=== PATIENT | male | born 1960 | race Caucasian/White ===

== ENCOUNTER → 2017-12-03 | Day surgery (SDC) | payer OTHER ==
[2017-11-03 09:46] LABS: BASOPHILS % 0.1 % (0.0-1.0); EOSINOPHILS # (AUTO) 0.3 (0.0-0.4); EOSINOPHILS % 2.2 % (0.0-6.0); HEMATOCRIT 44.4 % (38.2-49.6); HEMOGLOBIN 15.5 g/dL (14.0-18.0); LYMPHOCYTES # (AUTO) 2.4 (1.0-3.2); MEAN CORPUSCULAR HEMOGLOBIN 33.6 pg (28-32); MEAN CORPUSCULAR HGB CONC 34.9 g/dL (31-35); MEAN CORPUSCULAR VOLUME 96.3 fL (81-99); MONOCYTES # (AUTO) 0.9 (0.2-0.8); MONOCYTES % 7.9 % (4.4-11.3); NEUTROPHILS # (AUTO) 7.9 (2.1-6.9); NEUTROPHILS % 68.4 % (38.7-80.0); PLATELET COUNT 182 x10e3/uL (140-360); RED BLOOD COUNT 4.61 x10e6/uL (4.3-5.7); RED CELL DISTRIBUTION WIDTH 12.1 % (11.7-14.4)
--- NOTE | 2017-11-03 10:36 | Diagnostic Imaging Report ---
PROCEDURE: X-RAY CHEST, TWO VIEWS COMPARISON: None. INDICATIONS: PRE-OPERATIVE CHEST X-RAY FOR KNEE SCOPE FINDINGS: LUNGS: No consolidations or edema. PLEURA: No effusions or pneumothorax. HEART \T\ MEDIASTINUM: The heart is within normal size-limits. BONES \T\ SOFT TISSUES: No acute findings. There are degenerative changes of the spine. CONCLUSION: No acute thoracic abnormality. Justino Manning D.O. Dictated by: Justino Manning D.O. on 11/03/2017 at 10:35 Electronically approved by: Justino Manning D.O. on 11/03/2017 at 10:35
[~2017-12-03] MED LIST: ACEBUTOLOL HCL400 MG PO; ACETAMINOPHEN 1000 MG/100 ML IV ONE; AMLODIPINE BESY10 MG PO; ASPIR 8181 MG PO; BUPIVACAINE 0.5%/EPI 30 ML SDV INJ ONE; CEFAZOLIN SOD 2 GM/D5W 50ML 50 ML IV ONE; CLONIDINE HCL0.1 MG PO; DESFLURANE 240 ML BTL INH ONE; DEXAMETHASONE SOD PHOS INJ 4 MG/ML VIAL ONE; FENTANYL CITRATE/PF 100MCG/2 ML INJ ONE; FOLIC ACID1 MG PO; ISOSORBIDE MONO20 MG PO; KETAMINE HCL INJ 50 MG/ML 10 ML VIAL ONE; KETOROLAC TROMETHAMINE 30 MG/ML VIAL ONE; LIDOCAINE HCL 2% LOCAL INJ 5 ML SDV VIAL INJ ONE; LISINOPRIL10 MG PO; LOSARTAN POTAS100 MG PO; LOSARTAN POTASS50 MG PO; METOCLOPRAMIDE10 MG PO; METOPROLOL SUC100 MG; MIDAZOLAM HCL 2 MG/2 ML VIAL ONE; NORCO 10-325 T1 EACH PO; ONDANSETRON HCL INJ 2 MG/ML VIAL ONE; PLAVIX75 MG PO; PRAVASTATIN SOD40 MG PO; PROPOFOL IV EMULSION 10 MG/ML 20 ML VIAL ONE; PROTONIX40 MG PO; SUBOXONE 2 MG-1 EAC2 SL; SULINDAC200 MG PO
--- OUTSIDE RECORDS SUMMARY | 2017-12-03 09:09 | XMS REPORT ---
[facility] Address Unknown Phone Unavailable Care Team Providers Care Ware Tester Name Role Phone DURAN CHAN Unavailable Unavailable Problems This patient has no known problems. Allergies, Adverse Reactions, Alerts This patient has no known allergies or adverse reactions. Medications This patient has no known medications. Results Test Description Test Time Test Comments Text Results Atomic Results Result Comments CHEST 2 VIEWS [place] [address] Patient Name: FLAVIA CORMIER MR #: [id number] : 1960 Age/Sex: 57/M Req #: [id number] Adm Physician: Ordered by: GENO XIE MD Report #: [id number] Location: OR Room/Bed: Procedure: 0312- [id number] DX/CHEST 2 VIEWS Exam Date: 11/03/17 Exam Time : 0955 REPORT STATUS: Signed PROCEDURE: X-RAY CHEST, TWO VIEWS COMPARISON: None. INDICATIONS: PRE-OPERATIVE CHEST X-RAY FOR KNEE SCOPE FINDINGS: LUNGS: No consolidations or edema. PLEURA: No effusions or pneumothorax. HEART T MEDIASTINUM: The heart is within normal size-limits. BONES T SOFT TISSUES: No acute findings. There are degenerative changes of the spine. CONCLUSION: No acute thoracic abnormality. Kenneth Manning D.O. Dictated by: Kenneth Manning D.O. on 11/03/2017 at 10:35 Electronically approved by: Kenneth Manning D.O. on 11/03/2017 at 10:35 Dictated By: KENNETH MANNING DO 1036 Transcribed By: HOLLEY on 11/03/17 1036 COPY TO: GENO XIE MD
--- OUTSIDE RECORDS SUMMARY | 2017-12-03 09:10 | XMS REPORT ---
Author Organization Unknown Address [address] [place] [address] Phone [phone] Care Team Providers Care Turret Lathe Tender Name Role Phone Aravind Howard Jr Unavailable Unavailable Allergies Code Code System Name Reaction Severity Status Onset 5470 RxNorm Hydralazine Dizziness Moderate Active 07/14/2017 Medications Name Status Start Date Stop Date acebutolol 400 mg capsule Completed 01/15/2017 acetaminophen 300 mg-codeine 30 mg tablet Completed 12/24/2016 amlodipine 10 mg tablet Active Not available amoxicillin 875 mg tablet Completed 06/02/2017 aspirin 81 mg tablet,delayed release Take 1 tablet every day by oral route. Active Not available celecoxib 200 mg capsule Completed 12/24/2016 clonidine HCl 0.1 mg tablet Active Not available fluocinonide 0.05 % topical cream Completed 06/02/2017 Harvoni 90 mg-400 mg tablet Completed 12/24/2016 Havrix (PF) 1,440 Nikki unit/mL intramuscular suspension Completed 2016 hydralazine 25 mg tablet Completed 08/01/2017 Isosorbide Mononitrate CR 30 mg tablet,extended release Take 1 tablet every day by oral route. Completed 06/02/2017 isosorbide mononitrate ER 30 mg tablet,extended release 24 hr Active Not available lactulose 10 gram/15 mL oral solution Take 30 mL every day by oral route for 90 days. Active Not available lidocaine-prilocaine 2.5 %-2.5 % topical cream Apply 1 application every 4 hours by topical route as needed for 30 days. Active Not available lisinopril 40 mg tablet Active Not available losartan 100 mg tablet Completed 01/15/2017 meloxicam 15 mg tablet Completed 12/24/2016 metoprolol succinate ER 100 mg tablet,extended release 24 hr Active Not available pravastatin 40 mg tablet Active Not available Suboxone 8 mg-2 mg sublingual film Active Not available sulfamethoxazole 800 mg-trimethoprim 160 mg tablet Completed 06/02/2017 sulindac 200 mg tablet Active Not available tamsulosin 0.4 mg capsule Completed 06/02/2017 Notes: Pateint did not bring in his medications and does not know names of medications gb 08/01/17 Problems Name Status Onset Date Source Chronic Hepatitis C Active 12/24/2016 Chronic Pain Syndrome Active 12/24/2016 Mixed Hyperlipidemia Active 01/15/2017 Benign Hypertensive Heart Disease without Congestive Heart Failure Active Coronary Atherosclerosis Active 01/15/2017 Opioid Dependence Active 01/29/2017 Tobacco Dependence, Continuous Active 01/29/2017 Cirrhosis of Liver Active 01/29/2017 Recurrent Pancreatitis Active 01/29/2017 Benign Prostatic Hyperplasia Active 01/29/2017 Chronic Obstructive Lung Disease Active 06/02/2017 History of Angina Pectoris Active 08/01/2017 History of Placement of Stent for Coronary Artery Disease Active 08/01/2017 Procedures Date Name Performed by Exploration of Abdomen Information not available Eye Surgery Information not available Hip Surgery Information not available 06/02/2017 XR, Knee, 3 View [facility] Only [address] [place], [place] [id number] (Work Place) 06/04/2017 MRI, Knee, W/o Contrast [facility] Only [address] [place], [place] [id number] (Work Place) 07/23/2017 Electrocardiogram [facility] [address] [phone] (Work Place) 07/23/2017 XR, Chest, 2 View [facility] [address] [facility] [place], [place] [id number] (Work Place) 09/19/2017 Spirometry [facility] [address] [phone] (Work Place) Lab Results Date Name Specimen Result Interpretation Description Value Range Status Address 09/19/2017 CMP, Serum or Plasma Normal Glucose 88 mg/dL 65-99 mg/ dL Final [facility]: [address] Normal Urea Nitrogen (BUN) 21 mg/dL 7-25 mg/dL Final [facility]: [address] High Creatinine 1.37 mg/dL 0.70-1.33 mg/dL Final [facility]: [address] Low eGFR Non-afr. Russian 56 mL/min/1.73m2 > or=60 mL/min/ 1.73m2 Final [facility] eGFR 65 mL/min/1.73m2 > or=60 mL/min/ 1.73m2 Final [facility]: [address] [place] [address] Normal BUN/creatinine Ratio 15 (calc) 6-22 (calc) Final [facility]055 [facility] Sodium 137 mmol/L 135-146 mmol/L Final [facility]: [address] Normal Potassium 4.7 mmol/L 3.5-5.3 mmol/L Final [facility]: [address] Normal Chloride 101 mmol/L 98-110 mmol/L Final [facility]: [address] Normal Carbon Dioxide 27 mmol/L 20-31 mmol/L Final [facility]: [address] [place] [address] Normal Calcium 9.8 mg/dL 8.6-10.3 mg/dL Final [facility]: [address] [place] [address] Normal Protein, Total 7.7 g/dL 6.1-8.1 g/dL Final [facility]: [address] Normal Albumin 4.1 g/dL 3.6-5.1 g/dL Final [facility]: [address] [place] [address] Normal Globulin 3.6 g/dL (calc) 1.9-3.7 g/dL (calc) Final [facility]: [address] Normal Albumin/globulin Ratio 1.1 (calc) 1.0-2.5 (calc) Final [facility]: [address] [facility] Normal Bilirubin, Total 0.5 mg/dL 0.2-1.2 mg/dL Final [facility] [address] [facility] Normal Alkaline Phosphatase 76 U/L 40-115 U/L Final [facility]: [address] Normal Ast 25 U/L 10-35 U/L Final [facility]: [address] Normal Alt 17 U/L 9-46 U/L Final [facility] [address]055 [facility] 08/01/2017 CMP, Serum or Plasma Normal Glucose 93 mg/dL 65-99 mg/ dL Final [facility]: [address] Normal Urea Nitrogen (BUN) 18 mg/dL 7-25 mg/dL Final [facility]: [address] Normal Creatinine 1.29 mg/dL 0.70-1.33 mg/dL Final [facility]: [address] Normal eGFR Non-afr. Russian 60 mL/min/1.73m2 > or=60 mL/min/ 1.73m2 Final [facility]: [address] Normal eGFR 70 mL/min/1.73m2 > or=60 mL/min/ 1.73m2 Final [facility]: [address] BUN/creatinine Ratio not applicable (calc) 6-22 (calc) Final [facility]: [address] Normal Sodium 135 mmol/L 135-146 mmol/L Final [facility]: [address] High Potassium 5.5 mmol/L 3.5-5.3 mmol/L Final [facility]: [address] Normal Chloride 104 mmol/L 98-110 mmol/L Final [facility]: [address] Normal Carbon Dioxide 23 mmol/L 20-31 mmol/L Final [facility]: [address] Normal Calcium 10.0 mg/dL 8.6-10.3 mg/dL Final [facility]: [address] Normal Protein, Total 7.6 g/dL 6.1-8.1 g/dL Final [facility]: [address] Normal Albumin 4.3 g/dL 3.6-5.1 g/dL Final [facility]: [address] Normal Globulin 3.3 g/dL (calc) 1.9-3.7 g/dL (calc) Final [facility]: [address] [place] Normal Albumin/globulin Ratio 1.3 (calc) 1.0-2.5 (calc) Final [facility]: [address] [place] Normal Bilirubin, Total 0.5 mg/dL 0.2-1.2 mg/dL Final [facility]: [facility] [facility] Normal Alkaline Phosphatase 76 U/L 40-115 U/L Final [facility]: [address] [facility] Normal Ast 29 U/L 10-35 U/L Final [facility]: [address] [facility] Normal Alt 20 U/L 9-46 U/L Final [facility]: [address] [facility] 07/23/2017 PT/INR Normal Inr 1.0 Final [facility]: [address]055 [facility] Normal Pt 10.2 sec 9.0-11.5 sec Final [facility]: [address] [facility] 07/23/2017 Activated Partial Thromboplastin Time Normal Partial Thromboplastin Time, Activated 26 sec 22-34 sec Final [facility]: [address] [facility] 07/23/2017 CBC W/ Auto Diff Normal White Blood Cell Count 8.0 thousand/uL 3.8-10.8 thousand/uL Final [facility]: [address] [place] [address] Normal Red Blood Cell Count 4.63 million/uL 4.20-5.80 million/ uL Final [facility]: [address] [facility] Normal Hemoglobin 15.1 g/dL 13.2-17.1 g/dL Final [facility]: 9055 [facility] Normal Hematocrit 45.9 % 38.5-50.0 % Final [facility]: 9055 [facility] Normal Mcv 99.1 fL 80.0-100.0 fL Final [facility]: 9055 [facility] Normal Mch 32.6 pg 27.0-33.0 pg Final [facility]: [address]055 [facility] Normal Mchc 32.9 g/dL 32.0-36.0 g/dL Final [facility]: [address] Al [place], [place] Normal Rdw 12.8 % 11.0-15.0 % Final [facility]: [address], [place] Normal Platelet Count 144 thousand/uL 140-400 thousand/uL Final [facility]: [address] Al [address], [place] Normal Mpv 11.1 fL 7.5-12.5 fL Final [facility]: [address], [place] Normal Absolute Neutrophils 4808 cells/uL 9610-0684 cells/uL Final [facility]: [address], [place] Absolute Band Neutrophils Preliminary [facility]: [address], [place] Absolute Metamyelocytes Preliminary [facility]: [address], [place] Absolute Myelocytes Preliminary [facility]: [address], [place] Absolute Promyelocytes Preliminary [facility]: [address] Queen, [place] Normal Absolute Lymphocytes 2272 cells/uL 850-3900 cells/uL Final [facility]: [address], [place] Normal Absolute Monocytes 688 cells/uL 200-950 cells/uL Final [facility]: [address], [place] Normal Absolute Eosinophils 224 cells/uL 15-500 cells/uL Final [facility]: [address] Al [address], [place] Normal Absolute Basophils 8 cells/uL 0-200 cells/uL Final [facility]: [address], [place] Absolute Blasts Preliminary [facility]: [address], [place] Absolute Nucleated RBC Preliminary [facility]: [address], [place] Normal Neutrophils 60.1 % Final [facility]: [address], [place] Band Neutrophils Preliminary [facility]: [address], [place] Metamyelocytes Preliminary [facility]: [address] Al [address], [place] Myelocytes Preliminary [facility]: [address] Al [address], Nina Promyelocytes Preliminary [facility]: [address], [place] Normal Lymphocytes 28.4 % Final [facility]: [address] Al [address], [place] Reactive Lymphocytes Preliminary [facility]: [address]055 [address] Queen, [place] Normal Monocytes 8.6 % Final [facility]: [address]055 [address] Queen, [place] Normal Eosinophils 2.8 % Final [facility]: [address]055 [address] Queen, [place] Normal Basophils 0.1 % Final [facility]: [address] Al Micah, [place] Blasts Preliminary [facility] : [address]055 [address] Queen, [place] Nucleated RBC Preliminary [facility]: [address] Al Micah, [place] Comment(s) Preliminary [facility]: [address] Queen, [place] 07/23/2017 Lipid Panel, Serum Normal Cholesterol, Total 130 mg/dL <200 mg/dL Final [facility]: [address] Queen, [place] Normal HDL Cholesterol 52 mg/dL >40 mg/dL Final [facility]: [address] [place] [address] Normal Triglycerides 79 mg/dL <150 mg/dL Final [facility]: [address] Normal LDL-cholesterol 62 mg/dL (calc) Final [facility]: [address] [place] [address] Normal Chol/hdlc Ratio 2.5 (calc) <5.0 (calc) Final [facility]: [address] [place] [address] Normal Non HDL Cholesterol 78 mg/dL (calc) <130 mg/dL (calc) Final [facility]: [address] [place] [address] 07/23/2017 CMP, Serum or Plasma Normal Glucose 80 mg/dL 65-99 mg/ dL Final [facility]: [address] High Urea Nitrogen (BUN) 37 mg/dL 7-25 mg/dL Final [facility]: [address] [place] [address], [place] Normal Creatinine 1.32 mg/dL 0.70-1.33 mg/dL Final [facility]: [address] Low eGFR Non-afr. Russian 59 mL/min/1.73m2 > or=60 mL/min/ 1.73m2 Final [facility]: [address] Normal eGFR 68 mL/min/1.73m2 > or=60 mL/min/ 1.73m2 Final [facility]: [address] Queen, [place] High BUN/creatinine Ratio 28 (calc) 6-22 (calc) Final [facility]: [address]055 [address] Queen, [place] Normal Sodium 140 mmol/L 135-146 mmol/L Final [facility]: [address] [place] High Potassium 5.4 mmol/L 3.5-5.3 mmol/L Final [facility]: [address] [place], [place] Normal Chloride 106 mmol/L 98-110 mmol/L Final [facility]: [facility] [facility] Normal Carbon Dioxide 23 mmol/L 20-31 mmol/L Final [facility]: [facility] [facility] Normal Calcium 9.5 mg/dL 8.6-10.3 mg/dL Final [facility]: [address] [place] [address] Normal Protein, Total 7.6 g/dL 6.1-8.1 g/dL Final [facility]: [address] Normal Albumin 4.3 g/dL 3.6-5.1 g/dL Final [facility]: [address] Normal Globulin 3.3 g/dL (calc) 1.9-3.7 g/dL (calc) Final [facility]: [facility] [facility] Normal Albumin/globulin Ratio 1.3 (calc) 1.0-2.5 (calc) Final [facility]: [address] [place] [address] Normal Bilirubin, Total 0.6 mg/dL 0.2-1.2 mg/dL Final [facility]: [facility]055 [facility] Normal Alkaline Phosphatase 82 U/L 40-115 U/L Final [facility]: [facility] [facility] High Ast 36 U/L 10-35 U/L Final [facility]: [facility] [facility] Normal Alt 23 U/L 9-46 U/L Final [facility]: [address]055 [facility] 07/23/2017 HbA1C (Hemoglobin a1C), Blood Normal Hemoglobin a1C 5.3 % of total HGB <5.7 % of total HGB Final [facility]: [address] EAG (mg/dL) 105 (calc) Final [facility]: [address] EAG (mmol/L) 5.8 (calc) Final [facility]: [address] 03/25/2017 PSA, Serum or Plasma Normal PSA, Total 0.4 NG/mL < or= 4.0 NG/mL Final [facility]: [address] 03/25/2017 CMP, Serum or Plasma Normal Glucose 79 mg/dL 65-99 mg/ dL Final [facility]: [address] Normal Urea Nitrogen (BUN) 16 mg/dL 7-25 mg/dL Final [facility]: [address] Normal Creatinine 1.03 mg/dL 0.70-1.33 mg/dL Final [facility]: [address] Normal eGFR Non-afr. Russian 80 mL/min/1.73m2 > or=60 mL/min/ 1.73m2 Final [facility]: [address] Normal eGFR 92 mL/min/1.73m2 > or=60 mL/min/ 1.73m2 Final [facility]: [address] BUN/creatinine Ratio not applicable (calc) 6-22 (calc) Final [facility]: [address] Normal Sodium 135 mmol/L 135-146 mmol/L Final [facility]: [address] Normal Potassium 4.5 mmol/L 3.5-5.3 mmol/L Final [facility]: [address] Normal Chloride 108 mmol/L 98-110 mmol/L Final [facility]: [address] Low Carbon Dioxide 16 mmol/L 20-31 mmol/L Final [facility]: [address] Normal Calcium 9.5 mg/dL 8.6-10.3 mg/dL Final [facility]: [address] High Protein, Total 8.4 g/dL 6.1-8.1 g/dL Final [facility]: [address] Normal Albumin 4.7 g/dL 3.6-5.1 g/dL Final [facility]: [address] Normal Globulin 3.7 g/dL (calc) 1.9-3.7 g/dL (calc) Final [facility]: [address] Normal Albumin/globulin Ratio 1.3 (calc) 1.0-2.5 (calc) Final [facility]: [address] Normal Bilirubin, Total 0.6 mg/dL 0.2-1.2 mg/dL Final [facility]: [address] High Alkaline Phosphatase 118 U/L 40-115 U/L Final [facility]: [address] High Ast 60 U/L 10-35 U/L Final [facility]: [address] Normal Alt 32 U/L 9-46 U/L Final [facility]: [address] 03/25/2017 Lipid Panel, Serum Low Cholesterol, Total 123 mg/dL 125 -200 mg/dL Final [facility]: [address] Normal HDL Cholesterol 40 mg/dL > or=40 mg/dL Final [facility]: [address] Normal Triglycerides 103 mg/dL <150 mg/dL Final [facility]: [address] Normal LDL-cholesterol 62 mg/dL (calc) <130 mg/dL (calc) Final [facility]: [address] Normal Chol/hdlc Ratio 3.1 (calc) < or=5.0 (calc) Final [facility]: [address] Normal Non HDL Cholesterol 83 mg/dL (calc) Final [facility]: [address] 03/25/2017 TSH, Serum or Plasma Normal Tsh 2.95 mIU/L 0.40-4.50 mIU/L Final [facility]: [address] [place] 03/25/2017 CBC W/ Auto Diff Normal White Blood Cell Count 7.4 thousand/uL 3.8-10.8 thousand/uL Final [facility]: 9055 Ma[address] Ramírez Normal Red Blood Cell Count 5.03 million/uL 4.20-5.80 million/ uL Final [facility]: [address] [place] Normal Hemoglobin 16.6 g/dL 13.2-17.1 g/dL Final [facility]: [address] [place] Normal Hematocrit 48.9 % 38.5-50.0 % Final [facility]: [address] [place] Normal Mcv 97.2 fL 80.0-100.0 fL Final [facility]: [address] [place] Normal Mch 33.0 pg 27.0-33.0 pg Final [facility]: [address] [place] Normal Mchc 33.9 g/dL 32.0-36.0 g/dL Final [facility]: [address] [place] Normal Rdw 13.2 % 11.0-15.0 % Final [facility]: [address] [place] Low Platelet Count 133 thousand/uL 140-400 thousand/uL Final [facility]: [address] [place] Normal Mpv 11.7 fL 7.5-12.5 fL Final [facility]: [address]098 [address] [place] Normal Absolute Neutrophils 4292 cells/uL 5456-0179 cells/uL Final [facility]: [address] [place] Normal Absolute Lymphocytes 2220 cells/uL 850-3900 cells/uL Final [facility]: [address] [place] Normal Absolute Monocytes 644 cells/uL 200-950 cells/uL Final [facility]: [address]37 [address] [place] Normal Absolute Eosinophils 178 cells/uL 15-500 cells/uL Final [facility]: [address] [place] Normal Absolute Basophils 67 cells/uL 0-200 cells/uL Final [facility]: [address] [place] Normal Neutrophils 58 % Final [facility]: [address]055 [place] [address], [place] Normal Lymphocytes 30.0 % Final [facility]: [address] [place] [address], [place] Normal Monocytes 8.7 % Final [facility]: [address]055 [place] [address], [place] Normal Eosinophils 2.4 % Final [facility]: [address]055 [place] [address], [place] Normal Basophils 0.9 % Final [facility]: [address] [place] [address], [place] Electrocardiogram Rate & Rhythm 67 [facility]: [address] [place] [address], [place] Qrs 84 [facility]: [address] [place] [address], [place] Interval 208 [facility]: [address] [place] [address], [place] QRS Duration 84 [facility]: [address] [place] [address], [place] QT Interval 370 [facility]: [address] Urinalysis, Dipstick Color Color jaylin [facility]: [address] Color Appearance clear [facility]: [address] Color Glucose negative [facility]: [address] Color Bilirubin small [facility]: [address] Color Ketones negative [facility]: [address] Color Specific [place] 1.020 [facility]: [address] Color Blood negative [facility]: [address] Color PH 5.5 [facility]: [address] Color Protein 30 [facility]: [address] Color Urobilinogen 0.2 [facility]: [address] Color Nitrites negative [facility]: [address] Color Leukocytes negative [facility]: [address] Past Encounters 11/20/2017 Leukocytosis; Cirrhosis of Liver; Recurrent Pancreatitis; Thrombocytopenic Disorder; Opioid Dependence Aravind Howard Jr, MD: [address] [place] [address], [place] [address], Ph. 09/19/2017 Benign Hypertensive Heart Disease without Congestive Heart Failure; Pre-surgery Evaluation; Coronary Atherosclerosis; History of Placement of Stent for Coronary Artery Disease; History of Angina Pectoris; Laboratory Test Result Abnormal; Chronic Kidney Disease Stage 3; Hyperkalemia; Depression Screening; Immunization Refused; Chronic Obstructive Lung Disease Aravind Howard Jr, MD: [address], [facility] [address], [place] [address], Ph. 08/01/2017 Benign Hypertensive Heart Disease without Congestive Heart Failure; Pre-surgery Evaluation; Coronary Atherosclerosis; History of Placement of Stent for Coronary Artery Disease; History of Angina Pectoris; Laboratory Test Result Abnormal; Chronic Kidney Disease Stage 3; Hyperkalemia; Immunization Refused Aravind Howard Jr, MD: [address] [facility] [address], [place] [address], Ph. 07/23/2017 Benign Hypertensive Heart Disease without Congestive Heart Failure; Mixed Hyperlipidemia; Cirrhosis of Liver; Chronic Obstructive Lung Disease; Thrombocytopenic Disorder; Long-term Drug Therapy; Adverse Reaction to Drug; Pre -surgery Evaluation Aravind Howard Jr, MD: [address], [address] [address], Ph. 06/02/2017 Essential Hypertension; Coronary Atherosclerosis; Hyperlipidemia; Chronic Obstructive Lung Disease; Unstable Knee; Opioid Dependence Aravind Howard Jr, MD: [address], [facility] [address], [place] [address], Ph. 01/29/2017 Essential Hypertension; Chronic Hepatitis C; Cirrhosis of Liver; Opioid Dependence; Recurrent Pancreatitis; Tobacco Dependence, Continuous; Benign Prostatic Hyperplasia Aravind Howard Jr, MD: [id number] [facility] [address], [place] [address], Ph. 01/15/2017 Essential Hypertension Aravind Howard Jr, MD: [address] [facility] [address], [place] [address], Ph. 12/24/2016 Essential Hypertension; Hyperlipidemia Aravind Howard Jr, MD: [id number], [facility] [address], [place] [address], Ph. Social History Smoking Status Heavy Tobacco Smoker (1/2 PPD) Vaccine List Vaccine Type Influenza, injectable, MDCK, quadrivalent 0.5 mL influenza, unspecified formulation 06/27/2013 pneumococcal polysaccharide PPV23 06/27/2013 Plan of Care Patient Instructions Check your blood pressure 3-4 times a week. Write them down and bring that blood pressure log to your next appointment. Notify me if your blood pressure stays over 140/90. Check your blood pressure 3-4 times a week. Write them down and bring that blood pressure log to your next appointment. Notify me if your blood pressure stays over 140/90. Reminders Provider Appointments None recorded. Lab None recorded. Referral None recorded. Procedures None recorded. Surgeries None recorded. Imaging None recorded. Vitals 11/20/2017 02:30PM Est Patient Height Weight BMI Blood Pressure 6 ft 194 lbs 26.3 kg/m2 148/92 mm[Hg] 09/19/2017 02:30PM Est Patient Height Weight BMI Blood Pressure 6 ft 190 lbs 25.8 kg/m2 130/70 mm[Hg] 08/01/2017 09:30AM Est CPX Height Weight BMI Blood Pressure 6 ft 191.8 lbs 26 kg/m2 (1) 139/87 mm[Hg] (2) 124/74 mm[Hg] 07/23/2017 09:30AM Est Patient Height Weight BMI Blood Pressure 6 ft 189 lbs 25.6 kg/m2 (1) 156/80 mm[Hg] (2) 144/82 mm[Hg] 06/02/2017 02:00PM Est Patient Height Weight BMI Blood Pressure 6 ft 190.6 lbs 25.8 kg/m2 (1) 170/76 mm[Hg] (2) 148/76 mm[Hg] 01/29/2017 09:00AM Est Patient Height Weight BMI Blood Pressure 6 ft 188.4 lbs 25.6 kg/m2 150/76 mm[Hg] 01/15/2017 11:00AM Work In Same Day Height Weight BMI Blood Pressure 6 ft 184 lbs 25 kg/m2 188/90 mm[Hg] 12/24/2016 01:45PM Est Patient Height Blood Pressure 6 ft 142/80 mm[Hg]
--- NOTE | 2017-12-04 02:07 | Operative Report ---
DATE OF PROCEDURE: December 03, 2017 PREOPERATIVE DIAGNOSES: 1. Right knee medial meniscus tear. 2. Right knee degenerative joint disease of the knee. POSTOPERATIVE DIAGNOSES: 1. Right knee medial meniscus tear. 2. Right knee degenerative joint disease of the knee. OPERATIONS/PROCEDURES PERFORMED: Patient underwent: 1. Right knee examination under anesthesia. 2. Right knee arthroscopy. 3. Right knee partial medial meniscectomy. 4. Right knee chondroplasty of the trochlea, the medial femoral condyle, the medial tibial plateau, the lateral femoral condyle, and lateral tibial plateau. EQUAL EMPLOYMENT OPPORTUNITY OFFICER: None. ANESTHESIA: General endotracheal intubation anesthesia. IV FLUIDS: Per the anesthesia record. BRIEF DESCRIPTION OF PATIENT'S OPERATIVE PROCEDURE: Mr. Bruno was taken to the operating room and placed in the supine position on the operating room table. Following induction of general anesthesia as well as endotracheal intubation, the patient's right lower extremity was examined under anesthesia. He was found to have full passive range of motion of the patient's knee joint. There was mild effusion within the knee. The patient had limited hip motion following a total hip arthroplasty. The patient's lower extremity was prepped and draped in standard surgical fashion. Case was begun by creating 2 portals along the anterior aspect of the knee joint. 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 Scope was then advanced in medial compartment. Examination of the medial compartment demonstrated a torn and macerated medial meniscus. There was also chondromalacia of articulating surfaces. A combination of biting forceps and motorized shaver were used to resect the torn portion of meniscus. Chondromalacia of the medial femoral condyle and medial tibial plateau were performed at this time. Scope was advanced into the intercondylar notch and there was no pathology. The ACL was intact. The scope was then advanced into the lateral compartment. Examination of the lateral compartment demonstrated an intact meniscus. There was, however, chondromalacia of the articulating surfaces. A shaver was used to provide a chondroplasty for the lateral femoral condyle and lateral tibial plateau. Scope was then placed in suprapatellar pouch and chondroplasties of the trochlea were performed. The knee was then deflated of its sterile normal saline. The portal sites were closed using 4-0 nylon suture. The portal sites as well as the knee itself were injected with 0.5% Marcaine with epinephrine. Sterile dressings were applied, and the patient was awakened and taken to postanesthesia care unit in stable condition. Job#: [id number]
== END | disposition home or self-care (01) ==
LOC: OR 09:05
PROVIDERS: ATTEND Specialist
DX: S83.261A Peripheral tear of lateral meniscus, current injury, right knee, initial encounter (principal); M17.11 Unilateral primary osteoarthritis, right knee; M94.261 Chondromalacia, right knee; I25.10 Atherosclerotic heart disease of native coronary artery without angina pectoris; I25.2 Old myocardial infarction; I10 Essential (primary) hypertension; F17.210 Nicotine dependence, cigarettes, uncomplicated; E78.5 Hyperlipidemia, unspecified; X58.XXXA Exposure to other specified factors, initial encounter; Z79.82 Long term (current) use of aspirin; Z96.641 Presence of right artificial hip joint; Z95.5 Presence of coronary angioplasty implant and graft; Z86.19 Personal history of other infectious and parasitic diseases
CPT/HCPCS: 29881; 36415; 71046; 85025; 93005; J1100; J1885; J2001; J2250; J2405